=== PATIENT | female | born 1955 | race American Indian/Alaskan Native ===

== ENCOUNTER 2018-11-20 15:49 | Inpatient (IN) | payer MEDICARE ==
[2018-11-20] MEDS ORDERED: NACL 0.9% 1000 ML 1,000 ML IV ONE (16:25)
[2018-11-20 17:04] LABS: Hematocrit 50.1 % (30.3-42.9); Hemoglobin 16.7 gm/dl (10.1-14.3); Mean Corpuscular HGB Conc 33 % (30-34); Mean Corpuscular Volume 84 fl (79-97); Platelet Count 403 K/mm3 (140-440); Red Cell Distribution Width 14.1 % (13.2-15.2)
[2018-11-20 17:22] LABS: Albumin 4.4 g/dL (3.9-5); Calcium 10.8 mg/dL (8.4-10.2)
[2018-11-20] MEDS ORDERED: ZOFRAN IV ONE (17:28)
[2018-11-20] MEDS ORDERED: SUBLIMAZE IV ONE (17:28)
[2018-11-20 17:44] LABS: Bacteria,Urine 4+ /HPF (Negative); Bilirubin,Urine NEG (Negative); Blood,Urine MOD (Negative); Color,Urine Yellow (Yellow); Urobilinogen,Urine < 2.0 mg/dL (<2.0)
[2018-11-20 17:46] LABS: Protein,Urine >500 mg/dL (Negative)
--- NOTE | 2018-11-20 17:48 | Emergency Department Report ---
HPI - General Chief Complaint: Abdominal Pain Time Seen by Provider: 11/20/18 17:16 - HPI HPI: Room 2 The patient is a 63-year-old female presenting with a chief complaint of abdominal pain. 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 Patient a cknowledges for approximately 2 weeks she's had diffuse abdominal pain. Patient denies nausea vomiting or diarrhea. Patient denies history of fever. Patient gives her pain a score of 4/10. The patient was sent from her detention with documentation stating that the patient was "restless and agitated. Heart abdomen/hard stool. Elevated BP and pulse, low-grade fever. MOM given-refused rectal assessment." Location: Abdomen Duration: 2 weeks Quality: [See above] Severity: 4/10 Modifying factors: [see above] Context: [see above] Mode of transportation: [not driving] ED Past Medical Hx - Past Medical History Previous Medical History?: Yes Hx Hypertension: Yes Hx CVA: Yes Hx Diabetes: Yes Hx Psychiatric Treatment: Yes (MDD, Anxiety) Additional medical history: Aphasia. Iron def anemia - Surgical History Additional Surgical History: Cerebral aneurysm repair - Family History Family history: no significant - Social History Smoking Status: Former Smoker (none since 2012) Substance Use Type: None ED Review of Systems ROS: Stated complaint: SICK Other details as noted in HPI Constitutional: denies: fever Eyes: denies: eye pain ENT: denies: throat pain Respiratory: no symptoms reported Cardiovascular: denies: chest pain Endocrine: no symptoms reported Gastrointestinal: abdominal pain. denies: nausea, vomiting, diarrhea Genitourinary: denies: dysuria Musculoskeletal: denies: back pain Neurological: denies: headache Physical Exam - Physical Exam Vital Signs: Vital Signs 11/20/18 11/20/18 11/20/18 16:00 16:16 16:30 Temperature 99.2 F Pulse Rate 102 H 107 H 99 H Respiratory 17 16 18 Rate Blood Pressure 142/110 128/102 151/108 O2 Sat by Pulse 94 96 90 Oximetry 11/20/18 11/20/18 17:00 17:25 Temperature Pulse Rate 131 H Respiratory 18 16 Rate Blood Pressure 151/108 O2 Sat by Pulse 96 Oximetry Physical Exam: GENERAL: The patient is well-developed well-nourished female lying on stretcher not appear to be in acute distress. [] HEENT: Normocephalic. Atraumatic. Extraocular motions are intact. Patient has moist mucous membranes. NECK: Supple. Trachea midline CHEST/LUNGS: Clear to auscultation. There is no respiratory distress noted. HEART/CARDIOVASCULAR: Regular. There is no tachycardia. There is no gallop rub or murmur. ABDOMEN: Abdomen is soft, with diffuse tenderness to palpation. Patient has normal bowel sounds. There is no abdominal distention. SKIN: There is no rash. There is no edema. There is no diaphoresis. NEURO: The patient is awake, alert, and oriented. The patient is cooperative. MUSCULOSKELETAL: There is no evidence of acute injury. ED Course Vital Signs 11/20/18 11/20/18 11/20/18 16:00 16:16 16:30 Temperature 99.2 F Pulse Rate 102 H 107 H 99 H Respiratory 17 16 18 Rate Blood Pressure 142/110 128/102 151/108 O2 Sat by Pulse 94 96 90 Oximetry 11/20/18 11/20/18 17:00 17:25 Temperature Pulse Rate 131 H Respiratory 18 16 Rate Blood Pressure 151/108 O2 Sat by Pulse 96 Oximetry ED Medical Decision Making - Lab Data Result diagrams: 11/20/18 16:45 11/20/18 16:45 Laboratory Tests 11/20/18 11/20/18 11/20/18 16:45 16:45 17:23 WBC 31.2 H RBC 6.00 H Hgb 16.7 H Hct 50.1 H MCV 84 MCH 28 MCHC 33 RDW 14.1 Plt Count 403 Add Manual Diff Complete Total Counted 200 Seg Neuts % (Manual) 81.0 H Band Neutrophils % 0 Lymphocytes % (Manual) 12.5 L Reactive Lymphs % (Man) 0 Monocytes % (Manual) 6.5 Eosinophils % (Manual) 0 Basophils % (Manual) 0 Metamyelocytes % 0 Myelocytes % 0 Promyelocytes % 0 Blast Cells % 0 Nucleated RBC % Not Reportable Seg Neutrophils # Man 25.3 H Band Neutrophils # 0.0 Lymphocytes # (Manual) 3.9 Abs React Lymphs (Man) 0.0 Monocytes # (Manual) 2.0 H Eosinophils # (Manual) 0.0 Basophils # (Manual) 0.0 Metamyelocytes # 0.0 Myelocytes # 0.0 Promyelocytes # 0.0 Blast Cells # 0.0 WBC Morphology Not Reportable Hypersegmented Neuts Not Reportable Hyposegmented Neuts Not Reportable Hypogranular Neuts Not Reportable Smudge Cells Not Reportable Toxic Granulation Not Reportable Toxic Vacuolation Not Reportable Dohle Bodies Not Reportable Pelger-Huet Anomaly Not Reportable Trae Rods Not Reportable Platelet Estimate Consistent w auto Clumped Platelets Not Reportable Plt Clumps, EDTA Not Reportable Large Platelets Few Giant Platelets Few Platelet Satelliting Not Reportable Plt Morphology Comment Not Reportable RBC Morphology Not Reportable Dimorphic RBCs Not Reportable Polychromasia Not Reportable Hypochromasia Not Reportable Poikilocytosis Few Anisocytosis Not Reportable Microcytosis Not Reportable Macrocytosis Not Reportable Spherocytes Not Reportable Pappenheimer Bodies Not Reportable Sickle Cells Not Reportable Target Cells Not Reportable Tear Drop Cells Not Reportable Ovalocytes Few Helmet Cells Not Reportable [place] Bodies Not Reportable [place] Rings Not Reportable Creola Cells Not Reportable Bite Cells Not Reportable Crenated Cell Not Reportable Elliptocytes Not Reportable Acanthocytes (Spur) Not Reportable Rouleaux Not Reportable Hemoglobin C Crystals Not Reportable Schistocytes Not Reportable Malaria parasites Not Reportable Javier Bodies Not Reportable Hem Pathologist Commnt No Sodium 137 Potassium 4.2 Chloride 97.4 L Carbon Dioxide 24 Anion Gap 20 BUN 20 H Creatinine 1.4 H Estimated GFR 46 BUN/Creatinine Ratio 14 Glucose 134 H Calcium 10.8 H Total Bilirubin 0.50 AST 45 H ALT 47 Alkaline Phosphatase 72 Total Protein 9.5 H Albumin 4.4 Albumin/Globulin Ratio 0.9 Urine Color Yellow Urine Turbidity Clear Urine pH 6.0 Ur Specific Scott 1.020 Urine Protein >500 Urine Glucose (UA) Neg Urine Ketones Neg Urine Blood Mod Urine Nitrite Neg Urine Bilirubin Neg Urine Urobilinogen < 2.0 Ur Leukocyte Esterase Neg Urine WBC (Auto) 11.0 H Urine RBC (Auto) 2.0 U Epithel Cells (Auto) 1.0 Urine Bacteria (Auto) 4+ Urine Yeast (Budding) 2+ - Radiology Data Radiology results: report reviewed (CT abdomen and pelvis), image reviewed (CT abdomen and pelvis) [facility] [address] [place] [address] Cat Scan Report Signed Patient: ARNULFO JONES MR#: [id number] : 1955 Acct:[id number] Age/Sex: 63 / F ADM Date: 11/20/18 Loc: ED Attending Dr: Ordering Physician: HINA ALMEIDA MD Date of Service: 11/20/18 Procedure(s): CT abdomen pelvis wo con Accession Number(s): [id number] cc: HINA ALMEIDA MD PROCEDURE: CT ABDOMEN PELVIS WO CON TECHNIQUE: Computerized axial tomography of the abdomen and pelvis was performed without intravenous contrast. This study is performed without intravascular contrast mat erial and its sensitivity for abdominal and pelvic pathology, including neoplasms, inflammation, abscess, free fluid, thrombosis, arterial dissection and infarction, is reduced compared with a contrast enhanced study. CT DOSE LENGTH PRODUCT: mGycm HISTORY: diffuse abdominal pain, leukocytosis COMPARISONS: None . FINDINGS: This study is limited due to streak artifacts from the arms. Interstitial septal thickening is noted involving visualized bilateral lung bases. There is mild cardiomegaly. Liver, spleen, pancreas and adrenal glands are within normal limits. Bilateral kidneys demonstrate normal density without calculi or hydronephrosis. Aorta is of normal caliber. There is no free fluid or free air. Gallbladder is unremarkable. Small bowel loops are within normal limits. Mo derate degree of residual stool is noted in the rectum and sigmoid. Appendix is normal. Extensive pe riarticular soft tissue ossification is noted in the left hip region. Vertebral height is normal. IMPRESSION: Moderate degree of residual stool in rectum and sigmoid without any signs of intestinal obstruction. Mild degree cardiomegaly Interstitial septal thickening most likely represents interstitial fibrosis. 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 This document is electronically signed by Domingo Fernandez MD., November 20 2018 08:17:03 PM ET Transcribed By: [facility] Dictated By: DOMINGO FERNANDEZ Electronically Authenticated By: DOMINGO FERNANDEZ Signed Date/Time: 11/20/182018 DD/ 53 TD/TT: 11/20/181954 - Differential Diagnosis diverticulitis, appendicitis, colitis, pyelonephritis Critical care attestation.: If time is entered above; I have spent that time in minutes in the direct care of this critically ill patient, excluding procedure time. ED Disposition Clinical Impression: Acute abdominal pain, Leukocytosis, UTI (urinary tract infection) Disposition: OP ADMIT IP TO THIS HOSP Is pt being admited?: Yes Does the pt Need Aspirin: No Condition: Fair Instructions: Abdominal Pain (ED) Referrals: THOR AMEZCUA MD [Primary Care Provider] - 3-5 Days Time of Disposition: 20:37 (hospitalist paged (Dr May))
[2018-11-20 17:59] LABS: Basophils % (Manual) 0 % (0.0-1.8); Eosinophils % (Manual) 0 % (0.0-4.3); Monocytes % (Manual) 6.5 % (0.0-7.3); Total Cells Counted 200
[2018-11-20 18:00] LABS: Giant Platelets Few; Large Platelets Few; Ovalocytes Few; Platelet Estimate Consistent w Auto; Poikilocytosis Few
[2018-11-20] MEDS ORDERED: LEVAQUIN 750MG/150ML 750 MG/150 ML BAG IV ONE (19:35)
--- NOTE | 2018-11-20 20:19 | Cat Scan Report ---
PROCEDURE: CT ABDOMEN PELVIS WO CON TECHNIQUE: Computerized axial tomography of the abdomen and pelvis was performed without intravenous contrast. This study is performed without intravascular contrast material and its sensitivity for ab dominal and pelvic pathology, including neoplasms, inflammation, abscess, free fluid, thrombosis, art erial dissection and infarction, is reduced compared with a contrast enhanced study. CT DOSE LENGTH PRODUCT: mGycm HISTORY: diffuse abdominal pain, leukocytosis COMPARISONS: None . FINDINGS: This study is limited due to streak artifacts from the arms. Interstitial septal thickening is noted involving visualized bilateral lung bases. There is mild cardiomegaly. Liver, spleen, pancreas and ad renal glands are within normal limits. Bilateral kidneys demonstrate normal density without calculi o r hydronephrosis. Aorta is of normal caliber. There is no free fluid or free air. Gallbladder is unre markable. Small bowel loops are within normal limits. Moderate degree of residual stool is noted in t he rectum and sigmoid. Appendix is normal. Extensive periarticular soft tissue ossification is noted in the left hip region. Vertebral height is normal. IMPRESSION: Moderate degree of residual stool in rectum and sigmoid without any signs of intestinal o bstruction. Mild degree cardiomegaly Interstitial septal thickening most likely represents interstitial fibrosis. 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 This document is electronically signed by Franki Fernandez MD., November 20 2018 08:17:03 PM ET
[2018-11-20] MEDS ORDERED: DULCOLAX PO PRN (22:43)
[2018-11-20] MEDS ORDERED: D50W (25GM) Syringe IV PRN (22:45)
[2018-11-20] MEDS ORDERED: MORPHINE IV PRN (22:48)
[2018-11-20] MEDS ORDERED: ZOFRAN IV PRN (22:48)
[2018-11-21] MEDS: NACL 0.9% 1000 ML 1,000 ML IV SCH ×2 (02:54→17:18)
[2018-11-21 06:04] LABS: Calcium 9.4 mg/dL (8.4-10.2)
[2018-11-21 06:10] LABS: Hematocrit 44.6 % (30.3-42.9); Hemoglobin 14.7 gm/dl (10.1-14.3); Mean Corpuscular HGB Conc 33 % (30-34); Mean Corpuscular Volume 84 fl (79-97); Platelet Count 328 K/mm3 (140-440); Red Blood Count 5.29 M/mm3 (3.65-5.03); Red Cell Distribution Width 14.1 % (13.2-15.2)
--- NOTE | 2018-11-21 07:55 | History and Physical Report ---
CHIEF COMPLAINT: Abdominal pain. HISTORY OF PRESENTING ILLNESS: The patient is a 63-year-old female presenting with abdominal pain going on for about 2 weeks. There is no history of nausea and vomiting. Pain is mainly in the right lower quadrant and right upper quadrant area. There is no history of fever or chills. The patient gave the pain score of about 4/10. The patient came from a residential and also complains about hard stool when she goes to move her bowel. PAST MEDICAL HISTORY: Pertinent for hypertension, cerebrovascular accident with aphasia. Also, the patient has past history of diabetes mellitus and anxiety disorder. There is also past medical history of iron deficiency anemia. PAST SURGICAL HISTORY: Pertinent for cerebral aneurysm repair. FAMILY HISTORY: Family history is noncontributory. SOCIAL HISTORY: The patient stays at the residential, used to smoke cigarette, but does not smoke anymore, does not drink and does not use illicit drugs. MEDICATIONS: The patient's home medications are not known. ALLERGIES: There are no known drug allergies. REVIEW OF SYSTEMS: CONSTITUTIONAL: There is no fever, no chills, no diaphoresis. HEENT: There is no headache or sore throat. CARDIOVASCULAR SYSTEM: There is no chest pain or orthopnea. RESPIRATORY SYSTEM: There is no shortness of breath or cough. GASTROINTESTINAL SYSTEM: There is abdominal pain and constipation, but no nausea, no vomiting, no diarrhea. NEUROLOGICAL SYSTEM: There is no numbness, no dizziness, no altered mental status. MUSCULOSKELETAL SYSTEM: There is no joint pain or swelling. DERMATOLOGICAL SYSTEM: There is no skin rash or itching. GENITOURINARY SYSTEM: There is no dysuria, hematuria or flank pain. Rest of system review is normal. PHYSICAL EXAMINATION: GENERAL: At the time of exam, the patient was found to be alert, oriented x 3, not able to communicate because of aphasia, but not in acute distress. VITAL SIGNS: At the initial time of presentation show temperature of 99.2 degrees Fahrenheit, pulse of 102, respirations 17, blood pressure 142/110 and O2 sat of 94% on room air. The patient's blood pressure eventually came down to 110/83 with a pulse of 90 to about 109. HEENT: Showed pupils to be equal, round, reactive to light and accommodating. Extraocular muscles are intact. NECK: Neck is supple with no JVD or carotid bruit. CARDIOVASCULAR SYSTEM: Showed normal first and second heart sounds with no gallops or murmur. RESPIRATORY SYSTEM: Showed good air entry on both sides of the lungs with no abnormal breath sounds. GASTROINTESTINAL SYSTEM: Show abdomen to be full, soft, nontender with no organomegaly or rigidity. NEUROLOGIC: Neuro exam shows no focal deficit. MUSCULOSKELETAL SYSTEM: Show no joint swelling or tenderness. DERMATOLOGICAL SYSTEM: Showed no skin rash. GENITOURINARY SYSTEM: Show no costovertebral angle tenderness. PERTINENT LABORATORY DATA AND IMAGING STUDY: The patient had CT of the abdomen and pelvis done, which shows moderate degree of residual stool in the rectum and sigmoid without any sign of intestinal obstruction. Also the CT scan shows mild degree of cardiomegaly and interstitial septal thickening, most likely representing interstitial fibrosis. 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 The CT scan shows that liver, spleen, pancreas and adrenal glands all within normal limits and that there is no free fluid or free air found. The gallbladder was found to be unremarkable. The appendix was also found to be normal. Lab results; the patient has CBC done with elevated white count of 31,200 with high hemoglobin of 16.7, high hematocrit of 50.1 with CBC differential showing elevated segmented neutrophil of 81%. The patient's chemistry showed low chloride of 97.4 with normal sodium, normal potassium, with slightly elevated creatinine of 1.4 and slightly elevated BUN of 20 and rest of chemistry shows slightly elevated AST of 45 and elevated ALT of 47. Urinalysis shows negative urine leukocyte esterase with high urine WBC of 11 with 4+ bacteria and yellow clear colored urine. DIAGNOSES: 1. Abdominal pain. 2. Constipation. 3. Urinary tract infection. 4. Acute kidney injury. PLAN OF CARE: 1. The patient will be admitted to [facility]. 2. The patient will be on Accu-Chek a.c. and at bedtime, followed by low-dose sliding scale using regular insulin coverage. The patient will have CBC and basic metabolic panel checked this morning. 3. The patient will be on Dulcolax 10 mg by mouth daily as needed for constipation. 4. The patient will be on IV Levaquin 750 mg daily. 5. The patient will be on IV normal saline running at 75 mL an hour. 6. The patient will be on IV Zofran 4 mg every 8 hours as needed for nausea and vomiting and will have Nephrology consult with Dr. Carbone because of acute kidney injury. 7. The patient's home medications will be reconciled and started when they are known. 8. The patient's diet will be consistent carbohydrate, low sodium diet. JOB# [id number] OCN/NTS
[2018-11-21 08:04] LABS: Eosinophils % (Manual) 0 % (0.0-4.3); Platelet Estimate Consistent w Auto; RBC Morphology Normal; Total Cells Counted 100
[2018-11-21] MEDS: HumuLIN R SUB-Q SCH ×4 (09:07→22:15)
[2018-11-21] MEDS: HEPARIN SUB-Q SCH ×2 (09:29→22:42)
[2018-11-21] MEDS ORDERED: LEVAQUIN 750MG/150ML 750 MG/150 ML BAG IV SCH ×2 (10:00)
[2018-11-21] MEDS: MIRALAX 3350 PO SCH (12:19)
[2018-11-21] MEDS: DULCOLAX PO SCH (12:20)
[2018-11-21] MEDS: COLACE PO SCH ×2 (12:20→22:42)
--- NOTE | 2018-11-21 15:17 | Consultation ---
History of Present Illness - Reason for Consult Consult date: 11/21/18 acute renal failure - History of Present Illness Very pleasant 63-year-old -[place] female with a past medical history of hypertension and previous cerebrovascular accident with persistent right-sided weakness and left-sided facial droop along with chronic dysarthria secondary to the aforementioned CVA, presents from her long term facility secondary to worsening abdominal pain. Nephrology consulted secondary to acute kidney injury in the setting. CT abdomen noted without any acute findings. UA was apparently initially concerning for possible underlying urinary tract infection. Patient has been started on IV antibiotics per primary attending. Per patient she has no been told of any previous kidney dysfunction in the past. She does have as mentioned history of hypertension. She has had hypertension for years. Past History Past Medical History: diabetes, hypertension, hyperlipidemia Past Surgical History: Other (cerebral aneurysm repair) Social history: no significant social history Family history: diabetes, hypertension Medications and Allergies Allergies Allergy/AdvReac Type Severity Reaction Status Date / Time No Known Allergies Allergy Unverified 11/20/18 16:23 Active Meds: Active Medications Bisacodyl (Dulcolax) 10 mg PO QDAY [facility] Last Admin: 11/21/18 12:20 Dose: 10 mg Documented by: Dextrose (D50w (25gm) Syringe) 50 ml IV PRN PRN PRN Reason: Hypoglycemia Docusate Sodium (Colace) 100 mg PO BID [facility] Last Admin: 11/21/18 12:20 Dose: 100 mg Documented by: Heparin Sodium (Porcine) (Heparin) 5,000 unit SUB-Q Q12HR [facility] Last Admin: 11/21/18 09:29 Dose: 5,000 unit Documented by: Sodium Chloride (Nacl 0.9% 1000 Ml) 1,000 mls @ 75 mls/hr IV DIRECT [facility] Last Admin: 11/21/18 02:54 Dose: 75 mls/hr Documented by: Levofloxacin/Dextrose (Levaquin 750mg/150ml) 750 mg in 150 mls @ 100 mls/hr IV Q48HR [facility]; Protocol Last Admin: 11/21/18 09:30 Dose: 100 mls/hr Documented by: Insulin Human Regular (Humulin R) 0 units SUB-Q AC [facility]; Protocol Last Admin: 11/21/18 12:20 Dose: Not Given Documented by: Insulin Human Regular (Humulin R) 0 units SUB-Q QHS [facility]; Protocol Morphine Sulfate (Morphine) 2 mg IV Q4H PRN PRN Reason: Pain, Moderate (4-6) Ondansetron HCl (Zofran) 4 mg IV Q8H PRN PRN Reason: Nausea And Vomiting Polyethylene Glycol (Miralax 3350) 17 gm PO QDAY [facility] Last Admin: 11/21/18 12:19 Dose: 17 gm Documented by: Review of Systems Constitutional: poor appetite Gastrointestinal: abdominal pain, nausea Musculoskeletal: other Exam - Vital Signs Vital signs: Vital Signs Pulse Resp BP Pulse Ox 102 H 17 142/110 94 11/20/18 16:00 11/20/18 16:00 11/20/18 16:00 11/20/18 16:00 - General Appearance General appearance: well-developed, well-nourished, appears stated age Neck: Present: neck supple, trachea midline Respiratory: Clear to Ascultation Heart: regular, S1S2 Gastrointestinal: Present: normal, normoactive bowel sounds Integumentary: warm and dry Neurologic: alert and oriented x3, aphasic Musculoskeletal: Present: other (negative edema) Psychiatric: cooperative Results - Lab Results 11/21/18 05:14 11/21/18 05:14 Most recent lab results Calcium 9.4 mg/dL (8.4-10.2) 11/21/18 05:14 Assessment and Plan - Patient Problems (1) Acute kidney injury Current Visit: Yes Status: Acute Plan to address problem: Possibly prerenal in etiology. We'll assess a renal ultrasound. Urinalysis noted. We'll also order urine electrolytes for further evaluation. Will continue on current IV fluid regimen. Follow-up renal function studies tomorrow. (2) Hypertensive chronic kidney disease with stage 1 through stage 4 chronic kidney disease, or unspecified chronic kidney disease Current Visit: Yes Status: Chronic Plan to address problem: Continue on current regimen. We'll continue to monitor. (3) Acute abdominal pain Current Visit: Yes Status: Acute Plan to address problem: Seems to be improving since admission. CT abdomen without any acute findings. UA noted for possible UTI. She has been started on antibiotics. Will continue to monitor. (4) UTI (urinary tract infection) Current Visit: Yes Status: Acute Plan to address problem: Started on antibiotics per primary team. Please ensure that antibiotics are dosed appropriately for her renal function.
--- NOTE | 2018-11-21 15:54 | Progress Note ---
Assessment and Plan Abdominal pain, likely from huge stool burden - ordered stool softner - noted Ct abdomen/pelvis result - patient feeling lot better now possible UTI, on abx, follow cx, SIRS, will follow blood and urine cx, cont abx for now Robyn, likely vasomotor nephropathy, renal consulted, cont iv fluid h/o CVA with right sided weakness- supportive care, aspirin, statin Neuropathic pain, low dose gabapentin Physical exam: General appearance: well-developed, well-nourished, appears stated age Neck: Present: neck supple, trachea midline Respiratory: Clear to Ascultation Heart: regular, S1S2 Gastrointestinal: Present: normal, normoactive bowel sounds Integumentary: warm and dry Neurologic: alert and oriented x3, aphasic Musculoskeletal: Present: other (negative edema) Psychiatric: cooperative Subjective Date of service: 11/21/18 Interval history: Patient seen and examined c/o mild abdominal pain Tolerating diet Objective - Constitutional Vitals: Vital Signs - 12hr 11/21/18 11/21/18 11/21/18 05:07 10:00 11:59 Temperature 99.0 F Pulse Rate 109 H 120 H Respiratory 16 20 20 Rate Blood Pressure 110/83 140/90 O2 Sat by Pulse 96 96 94 Oximetry - Labs CBC & Chem 7: 11/23/18 05:21 11/23/18 05:21 Labs: Abnormal lab results 11/20/18 11/20/18 11/20/18 Range/Units 16:45 16:45 17:23 WBC 31.2 H (4.5-11.0) K/mm3 RBC 6.00 H (3.65-5.03) M/mm3 Hgb 16.7 H (10.1-14.3) gm/dl Hct 50.1 H (30.3-42.9) % Seg Neuts % (Manual) 81.0 H (40.0-70.0) % Lymphocytes % (Manual) 12.5 L (13.4-35.0) % Seg Neutrophils # Man 25.3 H (1.8-7.7) K/mm3 Monocytes # (Manual) 2.0 H (0.0-0.8) K/mm3 Basophils # (Manual) (0.0-0.1) K/mm3 Chloride 97.4 L (98-107) mmol/L BUN 20 H (7-17) mg/dL Creatinine 1.4 H (0.7-1.2) mg/dL Glucose 134 H (65-100) mg/dL POC Glucose (70-105) Calcium 10.8 H (8.4-10.2) mg/dL AST 45 H (5-40) units/L Total Protein 9.5 H (6.3-8.2) g/dL Urine WBC (Auto) 11.0 H (0.0-6.0) /HPF 11/21/18 11/21/18 11/21/18 Range/Units 05:14 05:14 11:18 WBC 21.6 H (4.5-11.0) K/mm3 RBC 5.29 H (3.65-5.03) M/mm3 Hgb 14.7 H (10.1-14.3) gm/dl Hct 44.6 H (30.3-42.9) % Seg Neuts % (Manual) 80.0 H (40.0-70.0) % Lymphocytes % (Manual) (13.4-35.0) % Seg Neutrophils # Man 17.3 H (1.8-7.7) K/mm3 Monocytes # (Manual) (0.0-0.8) K/mm3 Basophils # (Manual) 0.2 H (0.0-0.1) K/mm3 Chloride (98-107) mmol/L BUN 23 H (7-17) mg/dL Creatinine 1.6 H (0.7-1.2) mg/dL Glucose 135 H (65-100) mg/dL POC Glucose 118 H (70-105) Calcium (8.4-10.2) mg/dL AST (5-40) units/L Total Protein (6.3-8.2) g/dL Urine WBC (Auto) (0.0-6.0) /HPF
[2018-11-21] MEDS: NEURONTIN PO SCH (22:43)
[2018-11-22] MEDS: NEURONTIN PO SCH ×3 (06:11→21:55)
[2018-11-22] MEDS: NACL 0.9% 1000 ML 1,000 ML IV SCH (06:11)
[2018-11-22 08:23] LABS: Hematocrit 42.3 % (30.3-42.9); Hemoglobin 13.9 gm/dl (10.1-14.3); Mean Corpuscular HGB Conc 33 % (30-34); Mean Corpuscular Volume 84 fl (79-97); Platelet Count 281 K/mm3 (140-440); Red Blood Count 5.03 M/mm3 (3.65-5.03); Red Cell Distribution Width 14.1 % (13.2-15.2)
[2018-11-22 08:40] LABS: Calcium 8.9 mg/dL (8.4-10.2)
--- NOTE | 2018-11-22 09:01 | Progress Note ---
Assessment and Plan - Patient Problems (1) Acute kidney injury Current Visit: Yes Status: Acute Plan to address problem: Possibly prerenal in etiology. We'll assess a renal ultrasound. Urinalysis noted. Urine electrolytes pending. Recommend that we titrate down on the IVF as she is tolerating PO intake. Follow renal function labs daily. Overall renal function is stable and shows improvement since admission. (2) Hypertensive chronic kidney disease with stage 1 through stage 4 chronic kidney disease, or unspecified chronic kidney disease Current Visit: Yes Status: Chronic Plan to address problem: Will favor to discontinue her current IVF. (3) Acute abdominal pain Current Visit: Yes Status: Acute Plan to address problem: Seems to be improving since admission. CT abdomen without any acute findings. UA noted for possible UTI. She has been started on antibiotics. Will continue to monitor. (4) UTI (urinary tract infection) Current Visit: Yes Status: Acute Plan to address problem: Started on antibiotics per primary team. Please ensure that antibiotics are dosed appropriately for her renal function. Subjective Date of service: 11/22/18 Interval history: no acute issues overnight. Renal function improving and she is tolerating PO diet. Blood pressures elevated this morning, and seeing that she is able to tolerate PO intake, would recommend that we titrate her off the IVF. Objective - Vital Signs Vital signs: Vital Signs - 12hr 11/21/18 11/22/18 11/22/18 23:05 03:03 05:14 Temperature 98.7 F 98.0 F Pulse Rate 109 H 121 H Respiratory 20 18 Rate Blood Pressure 188/109 153/111 173/115 Blood Pressure [Left] O2 Sat by Pulse 93 91 Oximetry 11/22/18 08:48 Temperature Pulse Rate 109 H Respiratory Rate Blood Pressure Blood Pressure 152/112 [Left] O2 Sat by Pulse Oximetry - General Appearance General appearance: well-developed, well-nourished, appears stated age EENT: ATNC, PERRL Neck: no JVD Respiratory: Present: Clear to Ascultation Cardiology: regular, S1S2 Gastrointestinal: normoactive bowel sounds Integumentary: no rash, warm and dry Neurologic: aphasia Musculoskeletal: other (-edema ) - Lab 11/22/18 08:04 11/22/18 07:59 Most recent lab results Calcium 8.9 mg/dL (8.4-10.2) 11/22/18 07:59 - Allied health notes Allied health notes reviewed: nursing Medications & Allergies - Medications Allergies/Adverse Reactions: Allergies No Known Allergies Allergy (Unverified 11/20/18 16:23) Home Medications: Home Medications Medication Instructions Recorded Confirmed Last Taken Type Cholecalciferol (Vitamin D3) 2,000 unit PO QDAY 11/22/18 11/22/18 11/20/18 History [Vitamin D3 2,000 UNIT CAP] Dextran 70/Hypromellose 1 drop OU QDAY PRN 11/22/18 11/22/18 Unknown History [Artificial Tears] Docusate Sodium [Colace ORAL LIQ] 200 mg PO BID 11/22/18 11/22/18 11/20/18 History Escitalopram Oxalate [Lexapro] 20 mg PO QDAY 11/22/18 11/22/18 11/20/18 History Esomeprazole Magnesium [NexIUM] 40 mg PO QDAY 11/22/18 11/22/18 11/20/18 History Ferrous Sulfate [Iron] 325 mg PO DAILY 11/22/18 11/22/18 2 Days Ago History ~11/20/18 Gabapentin [Neurontin] 300 mg PO TID 11/22/18 11/22/18 11/20/18 History Ibuprofen 800 mg PO Q12HR PRN 11/22/18 11/22/18 Unknown History Latanoprost/Pf [Latanoprost 0.005% 1 drop OU QHS 11/22/18 11/22/18 11/20/18 History Eye Drop] Lisinopril [Zestril] 20 mg PO QDAY 11/22/18 11/22/18 11/20/18 History Metoprolol Tartrate 100 mg PO BID 11/22/18 11/22/18 2 Days Ago History ~11/20/18 Ondansetron [Zofran TAB] 4 mg PO Q4HR PRN 11/22/18 11/22/18 Unknown History Polyethylene Glycol 3350 17 gm PO DAILY 11/22/18 11/22/18 11/20/18 History Potassium Chloride 30 meq PO QAM 11/22/18 11/22/18 11/20/18 History Rosuvastatin (Nf) [Crestor] 5 mg PO QHS 11/22/18 11/22/18 11/19/18 History Valsartan [Diovan] 320 mg PO QDAY 11/22/18 11/22/18 11/20/18 History amLODIPine [Norvasc] 10 mg PO DAILY 11/22/18 11/22/18 11/20/18 History cloNIDine [Catapres] 0.2 mg PO BID 11/22/18 11/22/18 2 Days Ago History ~11/20/18 fentaNYL [Fentanyl] 1 each TD Q72HR 11/22/18 11/22/18 Unknown History hydroCHLOROthiazide [HCTZ] 25 mg PO QDAY 11/22/18 11/22/18 2 Days Ago History ~11/20/18 levETIRAcetam [Keppra TAB] 1,000 mg PO BID 11/22/18 11/22/18 2 Days Ago History ~11/20/18 Active Medications: Generic Name Dose Route Start Last Admin Trade Name Freq PRN Reason Stop Dose Admin Bisacodyl 10 mg 11/21/18 12:30 11/21/18 12:20 Dulcolax PO 10 mg QDAY PAULA Administration Dextrose 50 ml 11/20/18 22:45 D50w (25gm) Syringe IV PRN PRN Hypoglycemia Docusate Sodium 100 mg 11/21/18 12:30 11/21/18 22:42 Colace PO 100 mg BID PAULA Administration Gabapentin 100 mg 11/21/18 22:00 11/22/18 06:11 Neurontin PO 100 mg Q8HR PAULA Administration Heparin Sodium (Porcine) 5,000 unit 11/21/18 10:00 11/21/18 22:42 Heparin SUB-Q 5,000 unit Q12HR PAULA Administration Sodium Chloride 1,000 mls @ 75 mls/hr 11/20/18 23:00 11/22/18 06:11 Nacl 0.9% 1000 Ml IV 75 mls/hr DIRECT PAULA Administration Levofloxacin/Dextrose 750 mg in 150 mls @ 100 mls/hr 11/21/18 10:00 11/21/18 09:30 Levaquin 750mg/150ml IV 100 mls/hr Q48HR [facility] Administration Protocol Insulin Human Regular 0 units 11/21/18 07:30 11/21/18 17:27 Humulin R SUB-Q Not Given AC [facility] Protocol Insulin Human Regular 0 units 11/21/18 22:00 11/21/18 22:15 Humulin R SUB-Q Not Given QHS [facility] Protocol Morphine Sulfate 2 mg 11/20/18 22:48 Morphine IV Q4H PRN Pain, Moderate (4-6) Ondansetron HCl 4 mg 11/20/18 22:48 Zofran IV Q8H PRN Nausea And Vomiting Polyethylene Glycol 17 gm 11/21/18 12:30 11/21/18 12:19 Miralax 3350 PO 17 gm QDAY PAULA Administration
[2018-11-22] MEDS: DULCOLAX PO SCH (09:16)
[2018-11-22] MEDS: MIRALAX 3350 PO SCH (09:16)
[2018-11-22] MEDS: COLACE PO SCH ×2 (09:17→23:34)
[2018-11-22] MEDS: HumuLIN R SUB-Q SCH ×4 (09:17→23:35)
[2018-11-22] MEDS: HEPARIN SUB-Q SCH ×2 (09:17→21:55)
[2018-11-22] MEDS ORDERED: HYPROMELLOSE OU PRN (09:41)
[2018-11-22] MEDS ORDERED: DEXTRAN OU PRN (09:41)
[2018-11-22] MEDS ORDERED: NON-FORMULARY (Ondansetron [Zofran Tab] 4 MG) PO PRN (09:41)
[2018-11-22] MEDS ORDERED: NON-FORMULARY (Cholecalciferol (Vitamin D3) [Vitamin D3 2,000 Unit Cap] 2,000 UNIT) PO SCH (10:00)
[2018-11-22] MEDS ORDERED: NON-FORMULARY (Esomeprazole Magnesium [Nexium] 40 MG) PO SCH (10:00)
[2018-11-22] MEDS ORDERED: NORVASC PO SCH (10:00)
[2018-11-22] MEDS ORDERED: POLYETHYLENE GLYCOL PO SCH (10:00)
[2018-11-22] MEDS ORDERED: NON-FORMULARY (Levetiracetam [Keppra Tab] 1,000 MG) PO SCH (10:00)
[2018-11-22] MEDS ORDERED: NON-FORMULARY (Escitalopram Oxalate [Lexapro] 20 MG) PO SCH (10:00)
[2018-11-22] MEDS ORDERED: COLACE PO SCH (11:00)
[2018-11-22] MEDS ORDERED: DURAGESIC TD SCH (11:00)
[2018-11-22] MEDS ORDERED: ISOPTO TEARS 0.5% OU PRN (11:18)
[2018-11-22] MEDS ORDERED: ZOFRAN ODT PO PRN (11:20)
[2018-11-22] MEDS: VITAMIN D3 PO SCH (12:51)
[2018-11-22] MEDS: LOPRESSOR PO SCH ×2 (12:51→21:55)
[2018-11-22] MEDS: CATAPRES PO SCH ×2 (12:52→21:55)
[2018-11-22] MEDS: LEXAPRO PO SCH (12:52)
[2018-11-22] MEDS: KEPPRA PO SCH ×2 (12:52→21:55)
[2018-11-22] MEDS: NORVASC PO SCH (12:53)
[2018-11-22] MEDS: FEOSOL PO SCH (12:53)
[2018-11-22] MEDS ORDERED: NEURONTIN PO SCH (14:00)
[2018-11-22] MEDS ORDERED: APRESOLINE IV PRN (16:42)
--- NOTE | 2018-11-22 16:42 | Progress Note ---
Assessment and Plan Abdominal pain, likely from huge stool burden - ordered stool softner - had large BM today - noted Ct abdomen/pelvis result Gm negative UTI, on abx, urine cx growing Klebsiella, will follow final result Sepsis, due to UTI, cont abx for now PIPER, likely vasomotor nephropathy, renal consulted, cont iv fluid, Cr improving h/o CVA with right sided weakness- supportive care, aspirin, statin Neuropathic pain, low dose gabapentin Physical exam: General appearance: well-developed, well-nourished, appears stated age Neck: Present: neck supple, trachea midline Respiratory: Clear to Ascultation Heart: regular, S1S2 Gastrointestinal: Present: normal, normoactive bowel sounds Integumentary: warm and dry Neurologic: alert, aphasic, rightsided hameparesis Musculoskeletal: Present: other (negative edema) Psychiatric: cooperative Subjective Date of service: 11/22/18 Interval history: Patient seen and examined had big BM today Tolerating diet feels better Objective - Constitutional Vitals: Vital Signs - 12hr 11/22/18 11/22/18 11/22/18 05:14 08:48 09:25 Temperature 98.0 F Pulse Rate 121 H 109 H 109 H Respiratory 18 Rate Blood Pressure 173/115 151/112 Blood Pressure 152/112 [Left] O2 Sat by Pulse 91 Oximetry 11/22/18 11/22/18 11/22/18 12:51 12:52 12:53 Temperature Pulse Rate 123 H 123 H 123 H Respiratory Rate Blood Pressure 192/112 192/112 192/112 Blood Pressure [Left] O2 Sat by Pulse Oximetry - Labs CBC & Chem 7: 11/23/18 05:21 11/23/18 05:21 Labs: Abnormal lab results 11/22/18 11/22/18 Range/Units 07:59 08:04 WBC 14.9 H (4.5-11.0) K/mm3 Creatinine 1.3 H (0.7-1.2) mg/dL Glucose 109 H (65-100) mg/dL
[2018-11-22] MEDS: LATANOPROST 0.005% OU SCH (18:15)
[2018-11-22] MEDS ORDERED: LATANOPROST OU SCH (22:00)
[2018-11-22] MEDS ORDERED: NON-FORMULARY (Rosuvastatin (Nf) 5 MG) PO SCH (22:00)
[2018-11-23 06:03] LABS: Basophils # (Auto) 0.1 K/mm3 (0.0-0.1); Eosinophils # (Auto) 0.1 K/mm3 (0.0-0.4); Hematocrit 38.2 % (30.3-42.9); Hemoglobin 12.6 gm/dl (10.1-14.3); Lymphocytes # (Auto) 3.9 K/mm3 (1.2-5.4); Lymphocytes % (Auto) 28.9 % (13.4-35.0); Mean Corpuscular HGB Conc 33 % (30-34); Mean Corpuscular Volume 85 fl (79-97); Monocytes # (Auto) 1.3 K/mm3 (0.0-0.8); Monocytes % (Auto) 9.2 % (0.0-7.3); Platelet Count 236 K/mm3 (140-440); Red Blood Count 4.52 M/mm3 (3.65-5.03)
[2018-11-23 06:26] LABS: Calcium 8.9 mg/dL (8.4-10.2)
[2018-11-23] MEDS: HumuLIN R SUB-Q SCH ×4 (08:00→22:00)
[2018-11-23] MEDS: NEURONTIN PO SCH ×3 (09:24→23:03)
--- NOTE | 2018-11-23 09:53 | Progress Note ---
Assessment and Plan - Patient Problems (1) Acute kidney injury Current Visit: Yes Status: Acute Plan to address problem: Possibly prerenal in etiology. We'll assess a renal ultrasound. Urinalysis noted. Urine electrolytes pending. Recommend that we titrate down on the IVF as she is tolerating PO intake. Follow renal function labs daily. Overall renal function is stable. (2) Hypertensive chronic kidney disease with stage 1 through stage 4 chronic kidney disease, or unspecified chronic kidney disease Current Visit: Yes Status: Chronic Plan to address problem: May also be exacerbated by previous abdominal pain secondary to constipation, which has now relieved. Will continue to monitor (3) Acute abdominal pain Current Visit: Yes Status: Acute Plan to address problem: Seems to be improving since admission. CT abdomen without any acute findings. UA noted for possible UTI. She has been started on antibiotics. Will continue to monitor. Now improved after having large BM yesterday. (4) UTI (urinary tract infection) Current Visit: Yes Status: Acute Plan to address problem: Started on antibiotics per primary team. Please ensure that antibiotics are dosed appropriately for her renal function. Subjective Date of service: 11/23/18 Interval history: no acute issues at this time. Labs noted and renal function is stable. Patient abdominal pain has decreased after having large BM yesterday. Objective - Vital Signs Vital signs: Vital Signs - 12hr 11/22/18 23:00 Temperature 97.9 F Pulse Rate 66 Respiratory 18 Rate Blood Pressure 82/61 [Left] O2 Sat by Pulse 95 Oximetry - General Appearance General appearance: well-developed, well-nourished, appears stated age EENT: ATNC, PERRL Neck: no JVD, no thyromegaly Respiratory: Present: Clear to Ascultation Cardiology: regular, S1S2 Gastrointestinal: normal, normoactive bowel sounds Integumentary: warm and dry Neurologic: no focal deficit, alert and oriented x3 Musculoskeletal: other (-edema ) Psychiatric: mood/affect appropriate, cooperative - Lab 11/23/18 05:21 11/23/18 05:21 Most recent lab results Calcium 8.9 mg/dL (8.4-10.2) 11/23/18 05:21 - Allied health notes Allied health notes reviewed: nursing Medications & Allergies - Medications Allergies/Adverse Reactions: Allergies No Known Allergies Allergy (Unverified 11/20/18 16:23) Home Medications: Home Medications Medication Instructions Recorded Confirmed Last Taken Type Cholecalciferol (Vitamin D3) 2,000 unit PO QDAY 11/22/18 11/22/18 11/20/18 History [Vitamin D3 2,000 UNIT CAP] Dextran 70/Hypromellose 1 drop OU QDAY PRN 11/22/18 11/22/18 Unknown History [Artificial Tears] Docusate Sodium [Colace ORAL LIQ] 200 mg PO BID 11/22/18 11/22/18 11/20/18 History Escitalopram Oxalate [Lexapro] 20 mg PO QDAY 11/22/18 11/22/18 11/20/18 History Esomeprazole Magnesium [NexIUM] 40 mg PO QDAY 11/22/18 11/22/18 11/20/18 History Ferrous Sulfate [Iron] 325 mg PO DAILY 11/22/18 11/22/18 2 Days Ago History ~11/20/18 Gabapentin [Neurontin] 300 mg PO TID 11/22/18 11/22/18 11/20/18 History Ibuprofen 800 mg PO Q12HR PRN 11/22/18 11/22/18 Unknown History Latanoprost/Pf [Latanoprost 0.005% 1 drop OU QHS 11/22/18 11/22/18 11/20/18 History Eye Drop] Lisinopril [Zestril] 20 mg PO QDAY 11/22/18 11/22/18 11/20/18 History Metoprolol Tartrate 100 mg PO BID 11/22/18 11/22/18 2 Days Ago History ~11/20/18 Ondansetron [Zofran TAB] 4 mg PO Q4HR PRN 11/22/18 11/22/18 Unknown History Polyethylene Glycol 3350 17 gm PO DAILY 11/22/18 11/22/18 11/20/18 History Potassium Chloride 30 meq PO QAM 11/22/18 11/22/18 11/20/18 History Rosuvastatin (Nf) [Crestor] 5 mg PO QHS 11/22/18 11/22/18 11/19/18 History Valsartan [Diovan] 320 mg PO QDAY 11/22/18 11/22/18 11/20/18 History amLODIPine [Norvasc] 10 mg PO DAILY 11/22/18 11/22/1819 History cloNIDine [Catapres] 0.2 mg PO BID 11/22/18 11/22/18 2 Days Ago History ~11/20/18 fentaNYL [Fentanyl] 1 each TD Q72HR 11/22/18 11/22/18 Unknown History hydroCHLOROthiazide [HCTZ] 25 mg PO QDAY 11/22/18 11/22/18 2 Days Ago History ~11/20/18 levETIRAcetam [Keppra TAB] 1,000 mg PO BID 11/22/18 11/22/18 2 Days Ago History ~11/20/18 Active Medications: Generic Name Dose Route Start Last Admin Trade Name Freq PRN Reason Stop Dose Admin Amlodipine Besylate 10 mg 11/22/18 11:00 11/22/18 12:53 Norvasc PO 5 mg DAILY PAULA Administration Artificial Tears 1 drops 11/22/18 11:18 Isopto Tears 0.5% OU PRN PRN Dry Eye(s) Atorvastatin Calcium 10 mg 11/22/18 22:00 11/22/18 21:55 Lipitor PO 10 mg QHS PAULA Administration Bisacodyl 10 mg 11/21/18 12:30 11/22/18 09:16 Dulcolax PO 10 mg QDAY PAULA Administration Cholecalciferol 2,000 unit 11/22/18 12:00 11/22/18 12:51 Vitamin D3 PO 2,000 unit DAILY PAULA Administration Clonidine HCl 0.2 mg 11/22/18 11:00 11/22/18 21:55 Catapres PO 0.2 mg BID PAULA Administration Dextrose 50 ml 11/20/18 22:45 D50w (25gm) Syringe IV PRN PRN Hypoglycemia Docusate Sodium 200 mg 11/22/18 22:00 11/22/18 23:34 Colace PO Not Given BID PAULA Escitalopram Oxalate 20 mg 11/22/18 12:00 11/22/18 12:52 Lexapro PO 20 mg DAILY PAULA Administration Fentanyl 12 mcg 11/22/18 11:00 11/22/18 13:46 Duragesic TD 12 mcg Q72HR PAULA Administration Ferrous Sulfate 325 mg 11/22/18 12:00 11/22/18 12:53 Feosol PO 325 mg DAILY PAULA Administration Gabapentin 100 mg 11/22/18 14:00 11/23/18 09:24 Neurontin PO 100 mg TID PAULA Administration Heparin Sodium (Porcine) 5,000 unit 11/21/18 10:00 11/22/18 21:55 Heparin SUB-Q 5,000 unit Q12HR PAULA Administration Hydralazine HCl 5 mg 11/22/18 16:42 Apresoline IV Q30MIN PRN Hypertension Levofloxacin/Dextrose 750 mg in 150 mls @ 100 mls/hr 11/23/18 10:00 Levaquin 750mg/150ml IV Q24HR [facility] Protocol Insulin Human Regular 0 units 11/21/18 07:30 11/23/18 08:00 Humulin R SUB-Q Not Given AC [facility] Protocol Insulin Human Regular 0 units 11/21/18 22:00 11/22/18 23:35 Humulin R SUB-Q Not Given QHS [facility] Protocol Latanoprost 1 drops 11/22/18 18:00 11/22/18 18:15 Latanoprost 0.005% OU 1 drops QPM [facility] Administration Levetiracetam 1,000 mg 11/22/18 12:00 11/22/18 21:55 Keppra PO 1,000 mg BID PAULA Administration Metoprolol Tartrate 100 mg 11/22/18 12:00 11/22/18 21:55 Lopressor PO 100 mg BID [facility] Administration Ondansetron HCl 4 mg 11/20/18 22:48 Zofran IV Q8H PRN Nausea And Vomiting Ondansetron HCl 4 mg 11/22/18 11:20 Zofran Odt PO Q4H PRN Nausea And Vomiting Polyethylene Glycol 17 gm 11/21/18 12:30 11/22/18 09:16 Miralax 3350 PO 17 gm QDAY PAULA Administration
[2018-11-23] MEDS ORDERED: LEVAQUIN 750MG/150ML 750 MG/150 ML BAG IV SCH (10:00)
[2018-11-23] MEDS: VITAMIN D3 PO SCH (10:41)
[2018-11-23] MEDS: KEPPRA PO SCH ×2 (10:42→23:04)
[2018-11-23] MEDS: DULCOLAX PO SCH (10:43)
[2018-11-23] MEDS: COLACE PO SCH (10:43)
[2018-11-23] MEDS: HEPARIN SUB-Q SCH ×2 (10:44→23:04)
[2018-11-23] MEDS: LEXAPRO PO SCH (10:48)
[2018-11-23] MEDS: FEOSOL PO SCH (10:48)
[2018-11-23] MEDS: MIRALAX 3350 PO SCH (10:50)
[2018-11-23] MEDS: CATAPRES PO SCH ×2 (11:00→22:00)
[2018-11-23] MEDS: LOPRESSOR PO SCH (11:00)
[2018-11-23] MEDS: NORVASC PO SCH (11:00)
--- NOTE | 2018-11-23 14:36 | Discharge Summary ---
Providers - Providers Date of Admission: 11/20/18 22:40 Date of discharge: 11/24/18 Attending physician: BRIJESH GOFF 11/21/18 06:14 Consult to Physician [CONS] Routine Comment: Consulting Provider: HU SARMIENTO Physician Instructions: Reason For Exam: PIPER Primary care physician: THOR AMEZCUA Hospitalization Condition: Fair Pertinent studies: CT abdomen/pelvis: Moderate degree of residual stool in rectum and sigmoid without any signs of intestinal obstruction. Mild degree cardiomegaly Interstitial septal thickening most likely represents interstitial fibrosis. 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 Hospital course: The patient is a 63-year-old female presenting with a chief complaint of abdominal pain for approximately 2 weeks. 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 The patient was sent from her residential with documentation stating that the patient was "restless and agitated. CT abdomen/pelvis showed huge stool burden, UA was positive for UTI. She was placed on stool softner for constipation and abx for UTI. Her symptom improved, monitored renal function, she was then discharged back to SNF in stable condition. Discharge diagnosis and management: Abdominal pain, likely from huge stool burden - ordered stool softner - had large BM and now resolved - noted Ct abdomen/pelvis result Gm negative UTI, treated with abx, urine cx growing Klebsiella, Sepsis, due to UTI, treated with abx PIPER, likely vasomotor nephropathy, renal consulted, placed on iv fluid, Cr was stable on discharge h/o CVA with right sided weakness- managed with supportive care, aspirin, statin Neuropathic pain, stable with low dose gabapentin Physical exam: General appearance: well-developed, well-nourished, appears stated age Neck: Present: neck supple, trachea midline Respiratory: Clear to Auscultation Heart: regular, S1S2 Gastrointestinal: Present: normal, normoactive bowel sounds Integumentary: warm and dry Neurologic: alert, aphasic, rightsided hameparesis Musculoskeletal: Present: other (negative edema) Psychiatric: cooperative Disposition: DC/[place]-[facility] Time spent for discharge: 32 minutes Core Measure Documentation - Palliative Care Palliative Care/ Comfort Measures: Not Applicable - Core Measures Any of the following diagnoses?: history only Exam - Constitutional Vitals: Temp Pulse Resp BP Pulse Ox 97.9 F 66 18 82/61 95 11/22/18 23:00 11/22/18 23:00 11/22/18 23:00 11/22/18 23:00 11/22/18 23:00 Plan Activity: up only with assistance Diet: low fat Follow up with: THOR AMEZCUA MD [Primary Care Provider] - 3-5 Days Prescriptions: cefUROXime [Ceftin] 250 mg PO Q12H #10 tablet
--- NOTE | 2018-11-23 18:41 | Event Note ---
Date: 11/23/18 BP dropped to 88/55, will cont iv fluid hold logan meds, cont to monitor, hold d/c
[2018-11-23] MEDS ORDERED: NACL 0.9% 1000 ML 1,000 ML IV SCH (20:00)
[2018-11-24] MEDS: COLACE PO SCH ×2 (00:47→09:11)
[2018-11-24] MEDS: LOPRESSOR PO SCH (00:48)
[2018-11-24 01:55] VITALS: BP 94/62
[2018-11-24] MEDS: HumuLIN R SUB-Q SCH ×2 (09:10→11:30)
[2018-11-24] MEDS: VITAMIN D3 PO SCH (09:11)
[2018-11-24] MEDS: FEOSOL PO SCH (09:11)
[2018-11-24] MEDS: LEXAPRO PO SCH (09:17)
[2018-11-24] MEDS: KEPPRA PO SCH (09:17)
[2018-11-24] MEDS: NEURONTIN PO SCH ×2 (09:18→16:43)
[2018-11-24] MEDS: HEPARIN SUB-Q SCH (09:18)
--- NOTE | 2018-11-24 10:44 | Progress Note ---
Assessment and Plan - Patient Problems (1) Acute kidney injury Current Visit: Yes Status: Acute Plan to address problem: Possibly prerenal in etiology. We'll assess a renal ultrasound. Urinalysis noted. Urine electrolytes pending. Recommend that we titrate down on the IVF as she is tolerating PO intake. Follow renal function labs daily. Overall renal function is stable. (2) Hypertensive chronic kidney disease with stage 1 through stage 4 chronic kidney disease, or unspecified chronic kidney disease Current Visit: Yes Status: Chronic Plan to address problem: May also be exacerbated by previous abdominal pain secondary to constipation, which has now relieved. Her blood pressure dropped yesterday and remains low normal on IVF this am. Will favor to discontinue her amlodipine for now. She may be able to tolerate lower dose of 2.5 mg as an outpatient. (3) Acute abdominal pain Current Visit: Yes Status: Acute Plan to address problem: Seems to be improving since admission. CT abdomen without any acute findings. UA noted for possible UTI. She has been started on antibiotics. Will continue to monitor. Now improved. (4) UTI (urinary tract infection) Current Visit: Yes Status: Acute Plan to address problem: Started on antibiotics per primary team. Please ensure that antibiotics are dosed appropriately for her renal function. Subjective Date of service: 11/24/18 Interval history: Unable to be discharged last night secondary to hypotension. She is currently on IVF at 75 cc/hr. She is still on amlodipine 10 mg which I would favor to hold for now. Likely upon discharge she will be able to be discharged on lower dose of amlodipine 2.5 mg daily. Objective - Vital Signs Vital signs: Vital Signs - 12hr 11/24/18 11/24/18 00:48 01:49 Temperature 97.4 F L Pulse Rate 68 Respiratory 18 Rate Blood Pressure 91/62 Blood Pressure 94/62 [Left] - General Appearance General appearance: appears stated age EENT: ATNC, PERRL Neck: no JVD, no thyromegaly Respiratory: Present: Clear to Ascultation, Normal Exam Cardiology: regular Gastrointestinal: normal, normoactive bowel sounds Integumentary: no rash, warm and dry Neurologic: alert and oriented x3, aphasia Musculoskeletal: other (-edema ) - Lab 11/23/18 05:21 11/23/18 05:21 Most recent lab results Calcium 8.9 mg/dL (8.4-10.2) 11/23/18 05:21 - Allied health notes Allied health notes reviewed: nursing Medications & Allergies - Medications Allergies/Adverse Reactions: Allergies No Known Allergies Allergy (Unverified 11/20/18 16:23) Home Medications: Home Medications Medication Instructions Recorded Confirmed Last Taken Type Cholecalciferol (Vitamin D3) 2,000 unit PO QDAY 11/22/18 11/22/18 11/20/18 History [Vitamin D3 2,000 UNIT CAP] Dextran 70/Hypromellose 1 drop OU QDAY PRN 11/22/18 11/22/18 Unknown History [Artificial Tears] Docusate Sodium [Colace ORAL LIQ] 200 mg PO BID 11/22/18 11/22/18 11/20/18 History Escitalopram Oxalate [Lexapro] 20 mg PO QDAY 11/22/18 11/22/18 11/20/18 History Esomeprazole Magnesium [NexIUM] 40 mg PO QDAY 11/22/18 11/22/18 11/20/18 History Ferrous Sulfate [Iron] 325 mg PO DAILY 11/22/18 11/22/18 2 Days Ago History ~11/20/18 Latanoprost/Pf [Latanoprost 0.005% 1 drop OU QHS 11/22/18 11/22/18 11/20/18 History Eye Drop] Metoprolol Tartrate 100 mg PO BID 11/22/18 11/22/18 2 Days Ago History ~11/20/18 Ondansetron [Zofran TAB] 4 mg PO Q4HR PRN 11/22/18 11/22/18 Unknown History Polyethylene Glycol 3350 17 gm PO DAILY 11/22/18 11/22/18 11/20/18 History Rosuvastatin (Nf) [Crestor] 5 mg PO QHS 11/22/18 11/22/18 11/19/18 History Valsartan [Diovan] 320 mg PO QDAY 11/22/18 11/22/18 11/20/18 History amLODIPine [Norvasc] 10 mg PO DAILY 11/22/18 11/22/18 11/20/18 History cloNIDine [Catapres] 0.2 mg PO BID 11/22/18 11/22/18 2 Days Ago History ~11/20/18 fentaNYL [Fentanyl] 1 each TD Q72HR 11/22/18 11/22/18 Unknown History hydroCHLOROthiazide [HCTZ] 25 mg PO QDAY 11/22/18 11/22/18 2 Days Ago History ~11/20/18 levETIRAcetam [Keppra TAB] 1,000 mg PO BID 11/22/18 11/22/18 2 Days Ago History ~11/20/18 Gabapentin [Neurontin] 100 mg PO TID capsule 11/23/18 Unknown Rx cefUROXime [Ceftin] 250 mg PO Q12H #10 tablet 11/23/18 Unknown Rx Active Medications: Generic Name Dose Route Start Last Admin Trade Name Freq PRN Reason Stop Dose Admin Amlodipine Besylate 10 mg 11/22/18 11:00 11/23/18 11:00 Norvasc PO 10 mg DAILY PAULA Administration Artificial Tears 1 drops 11/22/18 11:18 Isopto Tears 0.5% OU PRN PRN Dry Eye(s) Atorvastatin Calcium 10 mg 11/22/18 22:00 11/23/18 23:02 Lipitor PO 10 mg QHS PAULA Administration Bisacodyl 10 mg 11/21/18 12:30 11/23/18 10:43 Dulcolax PO 10 mg QDAY [facility] Administration Cholecalciferol 2,000 unit 11/22/18 12:00 11/24/18 09:11 Vitamin D3 PO 2,000 unit DAILY [facility] Administration Dextrose 50 ml 11/20/18 22:45 D50w (25gm) Syringe IV PRN PRN Hypoglycemia Docusate Sodium 200 mg 11/22/18 22:00 11/24/18 09:11 Colace PO 200 mg BID PAULA Administration Escitalopram Oxalate 20 mg 11/22/18 12:00 11/24/18 09:17 Lexapro PO 20 mg DAILY [facility] Administration Fentanyl 12 mcg 11/22/18 11:00 11/22/18 13:46 Duragesic TD 12 mcg Q72HR [facility] Administration Ferrous Sulfate 325 mg 11/22/18 12:00 11/24/18 09:11 Feosol PO 325 mg DAILY [facility] Administration Gabapentin 100 mg 11/22/18 14:00 11/24/18 09:18 Neurontin PO 100 mg TID [facility] Administration Heparin Sodium (Porcine) 5,000 unit 11/21/18 10:00 11/24/18 09:18 Heparin SUB-Q 5,000 unit Q12HR [facility] Administration Hydralazine HCl 5 mg 11/22/18 16:42 Apresoline IV Q30MIN PRN Hypertension Levofloxacin/Dextrose 750 mg in 150 mls @ 100 mls/hr 11/25/18 10:00 Levaquin 750mg/150ml IV Q48HR [facility] Protocol Sodium Chloride 1,000 mls @ 75 mls/hr 11/23/18 20:00 11/24/18 00:40 Nacl 0.9% 1000 Ml IV 75 mls/hr DIRECT [facility] Administration Insulin Human Regular 0 units 11/21/18 07:30 11/24/18 09:10 Humulin R SUB-Q Not Given AC [facility] Protocol Insulin Human Regular 0 units 11/21/18 22:00 11/23/18 22:00 Humulin R SUB-Q Not Given QHS [facility] Protocol Latanoprost 1 drops 11/22/18 18:00 11/22/18 18:15 Latanoprost 0.005% OU 1 drops QPM [facility] Administration Levetiracetam 1,000 mg 11/22/18 12:00 11/24/18 09:17 Keppra PO 1,000 mg BID [facility] Administration Ondansetron HCl 4 mg 11/20/18 22:48 Zofran IV Q8H PRN Nausea And Vomiting Ondansetron HCl 4 mg 11/22/18 11:20 Zofran Odt PO Q4H PRN Nausea And Vomiting Polyethylene Glycol 17 gm 11/21/18 12:30 11/23/18 10:50 Miralax 3350 PO 17 gm QDAY [facility]UL[facility] Administration
[2018-11-24 12:19] LABS: Mean Corpuscular HGB Conc 33 % (30-34); Mean Corpuscular Volume 85 fl (79-97); Platelet Count 228 K/mm3 (140-440); Red Blood Count 4.35 M/mm3 (3.65-5.03); Red Cell Distribution Width 14.7 % (13.2-15.2)
[2018-11-24 12:42] LABS: Calcium 8.7 mg/dL (8.4-10.2)
[2018-11-24] MEDS: DULCOLAX PO SCH (13:35)
[2018-11-24] MEDS: LATANOPROST 0.005% OU SCH (13:35)
[2018-11-24] MEDS: MIRALAX 3350 PO SCH (13:37)
--- NOTE | 2018-11-24 15:40 | Progress Note ---
Assessment and Plan Abdominal pain, likely from huge stool burden, resolved - ordered stool softner - had large BM - noted Ct abdomen/pelvis result Gm negative UTI, on abx, urine cx growing Klebsiella, Sepsis, due to UTI, cont abx for now PIPER, likely vasomotor nephropathy, renal consulted, cont iv fluid, Cr stable h/o CVA with right sided weakness- supportive care, aspirin, statin Hypotension, will hold BP meds, cont iv fluid Neuropathic pain, low dose gabapentin Physical exam: General appearance: well-developed, well-nourished, appears stated age Neck: Present: neck supple, trachea midline Respiratory: Clear to Ascultation Heart: regular, S1S2 Gastrointestinal: Present: normal, normoactive bowel sounds Integumentary: warm and dry Neurologic: alert, aphasic, rightsided hameparesis Musculoskeletal: Present: other (negative edema) Psychiatric: cooperative Subjective Date of service: 11/23/18 Interval history: Patient seen and examined Tolerating diet feels better Discussed with daughter, BP at high 80s Objective - Labs CBC & Chem 7: 11/24/18 11:44 11/24/18 11:44 Labs: Abnormal lab results 11/23/18 11/23/18 11/24/18 Range/Units 16:22 22:05 11:44 WBC 12.4 H (4.5-11.0) K/mm3 BUN (7-17) mg/dL Creatinine (0.7-1.2) mg/dL POC Glucose 120 H 106 H (70-105) 11/24/18 Range/Units 11:44 WBC (4.5-11.0) K/mm3 BUN 21 H (7-17) mg/dL Creatinine 1.3 H (0.7-1.2) mg/dL POC Glucose (70-105)
[2018-11-25] MEDS ORDERED: LEVAQUIN 750MG/150ML 750 MG/150 ML BAG IV SCH (10:00)
== END 2018-11-24 18:48 | DRG 871 ==
LOC: ED 15:49 → 3A 22:40
PROVIDERS: ADMIT Internal Medicine; ATTEND Internal Medicine
DX: A41.9 Sepsis, unspecified organism (principal); N17.0 Acute kidney failure with tubular necrosis; I69.351 Hemiplegia and hemiparesis following cerebral infarction affecting right dominant side; N39.0 Urinary tract infection, site not specified; N18.9 Chronic kidney disease, unspecified; I12.9 Hypertensive chronic kidney disease with stage 1 through stage 4 chronic kidney disease, or unspecified chronic kidney disease; B96.89 Other specified bacterial agents as the cause of diseases classified elsewhere; F32.9 Major depressive disorder, single episode, unspecified; F41.9 Anxiety disorder, unspecified; E11.22 Type 2 diabetes mellitus with diabetic chronic kidney disease; Z79.899 Other long term (current) drug therapy; Z82.49 Family history of ischemic heart disease and other diseases of the circulatory system; Z83.3 Family history of diabetes mellitus
CPT/HCPCS: 36415; 74176; 80048; 80053; 81001; 82962; 85007; 85025; 85027; 87040; 87086; 87186; 93005; 93010; G0378; A9270-GY; J1644; J1815; J1956; J2405; J3010; J7030